=== PATIENT | female | born 1975 | race Two or more races ===

== ENCOUNTER 2020-09-09 11:59 | Inpatient (IN) | payer OTHER ==
[2020-09-09] VITALS (21 sets, daily range): BP systolic 88–157; BP diastolic 36–129
[~2020-09-09] VITALS: Ht 170.2 cm; Wt 95.0 kg
[2020-09-09] MEDS ORDERED: ETOMIDATE (2MG/ML) 20ML VIAL IV ONE ×2 (12:00→12:05)
[2020-09-09] MEDS ORDERED: MIDAZOLAM DRIP 50 mg/50mL 50 ML IV ONE (12:00)
[2020-09-09] MEDS ORDERED: SUCCINYLCHOLINE CHLORIDE 20 MG/ML 10ML VIAL IV ONE ×2 (12:01→12:05)
[2020-09-09] MEDS: MIDAZOLAM DRIP 50 mg/50mL 50 ML IV SCH ×2 (12:05→19:46)
[2020-09-09] MEDS ORDERED: ACETAMINOPHEN 650 MG RECT SUPP PR ONE (12:30)
[2020-09-09] MEDS ORDERED: PROPOFOL 100 ML IV ONE (12:39)
[2020-09-09] MEDS ORDERED: SODIUM CHLORIDE 0.9% 1,000 ML IV ONE ×2 (12:45)
[2020-09-09] MEDS: PROPOFOL 100 ML IV SCH ×3 (12:45→22:25)
[2020-09-09] MEDS ORDERED: cefTRIAXone 1GM/50ML D5W 50 ML IV ONE (12:45)
[2020-09-09 13:10] LABS: Basophils # (auto) 0.1 10 ^3/uL (0-0.2); Basophils % (auto) 1.3 % (0.0-2.0); Eosinophils # (auto) 0 10 ^3/uL (0-0.8); Eosinophils % (auto) 0.1 % (0.0-7.0); Hematocrit 35.3 % (36.0-46.0); Hemoglobin 11.5 g/dL (12.2-16.2); Lymphocytes # (auto) 2.4 10 ^3/uL (0.4-5.4); Lymphocytes % (auto) 44.3 % (10.0-50.0); Mean Corpuscular Hemoglobin 27.7 pg (28.0-32.0); Mean Corpuscular Hgb Conc. 32.6 g/dL (32.0-36.0); Mean Corpuscular Volume 85.1 fL (80.0-100.0); Monocytes # (auto) 0.2 10 ^3/uL (0-1.3); Monocytes % (auto) 4.6 % (0.0-12.0); Neutrophils # (auto) 2.7 10 ^3/uL (1.6-8.6); Neutrophils % (auto) 49.7 % (37.0-80.0); Nucleated Red Blood Cells % 0.4 %; Red Blood Cells 4.15 10^6/uL (4.0-5.20); White Blood Cell 5.4 10^3/uL (4.4-10.8)
[2020-09-09 13:18] LABS: Red Cell Distribution Width 23.3 % (11.8-14.3)
[2020-09-09 13:30] LABS: Albumin 3.8 g/dL (3.4-5.0); Calcium 7.9 mg/dL (8.5-10.1); Potassium 4.4 mmol/L (3.5-5.1)
[2020-09-09 13:32] LABS: Lactic Acid w/Reflex 5.7 mmol/L (0.4-2.0)
[2020-09-09 13:36] LABS: Bilirubin, Total 0.7 mg/dL (0.2-1.0); Total Protein 7.6 g/dL (6.4-8.2)
[2020-09-09 13:38] LABS: Urine Bacteria MOD /hpf (None Seen); Urine Blood Negative /uL (Negative); Urine Mucus MODERATE (None Seen); Urine Specific Gravity 1.008 (1.001-1.035); Urine WBC 16 /hpf (0 - 5)
[2020-09-09 13:56] LABS: Amphetamine Screen, Urine NEGATIVE (NEGATIVE); Barbiturate Scree,Urine NEGATIVE (NEGATIVE); Benzodiazephine Screen, Urine NEGATIVE (NEGATIVE); Cannabinoid Screen, Urine NEGATIVE (NEGATIVE); Cocaine Screen, Urine NEGATIVE (NEGATIVE); Opiate Scree,Urine NEGATIVE (NEGATIVE); Phencyclidine Screen, Urine NEGATIVE (NEGATIVE)
[2020-09-09] MEDS ORDERED: NOREPINEPHRINE 8 MG/250ML KIT 250 ML IV ONE (14:41)
[2020-09-09] MEDS ORDERED: CALCIUM GLUC 1,000mg/50ml-NS 50 ML IV ONE (17:00)
[2020-09-09] MEDS ORDERED: NITROGLYCERIN 0.4 MG SL TAB SL PRN (17:00)
[2020-09-09] MEDS ORDERED: ACETAMINOPHEN 325 MG RECT SUPP PR PRN (17:00)
[2020-09-09] MEDS ORDERED: MORPHINE SULF INJ 2 MG/ML SYRINGE 1ML IV PRN (17:00)
[2020-09-09] MEDS: NOREPINEPHRINE 8 MG/250ML KIT 250 ML IV SCH (17:09)
[2020-09-09] MEDS: SODIUM CHLORIDE 0.9% 1,000 ML IV SCH (17:24)
[2020-09-10] VITALS (101 sets, daily range): BP systolic 92–151; BP diastolic 36–84
[2020-09-10] MEDS: fentaNYL Drip 2500mCg/250mlNS 250 ML IV SCH (03:21)
[2020-09-10 05:44] LABS: Basophils # (auto) 0 10 ^3/uL (0-0.2); Basophils % (auto) 0.3 % (0.0-2.0); Eosinophils # (auto) 0 10 ^3/uL (0-0.8); Eosinophils % (auto) 0.1 % (0.0-7.0); Hematocrit 30.1 % (36.0-46.0); Hemoglobin 9.8 g/dL (12.2-16.2); Lymphocytes # (auto) 1.6 10 ^3/uL (0.4-5.4); Lymphocytes % (auto) 21.7 % (10.0-50.0); Mean Corpuscular Hemoglobin 27.9 pg (28.0-32.0); Mean Corpuscular Hgb Conc. 32.5 g/dL (32.0-36.0); Mean Corpuscular Volume 85.8 fL (80.0-100.0); Monocytes # (auto) 0.7 10 ^3/uL (0-1.3); Monocytes % (auto) 9.1 % (0.0-12.0); Neutrophils % (auto) 68.8 % (37.0-80.0); Nucleated Red Blood Cells % 0.2 %; Red Blood Cells 3.51 10^6/uL (4.0-5.20); White Blood Cell 7.2 10^3/uL (4.4-10.8)
[2020-09-10 05:51] LABS: Albumin 3.1 g/dL (3.4-5.0); Anion Gap 7 (5-15); Blood Urea Nitrogen 15 mg/dL (7-18); Calcium 7.4 mg/dL (8.5-10.1); Carbon Dioxide 23 mmol/L (21-32); Chloride 111 mmol/L (98-107); Glucose 111 mg/dL (74-106); Potassium 3.7 mmol/L (3.5-5.1); Sodium 141 mmol/L (136-145)
[2020-09-10 05:57] LABS: Alanine Aminotransferase 100 U/L (13-56); Alkaline Phosphatase 84 U/L (45-117); Aspartate Aminotransferase 81 U/L (15-37); BUN/Creatinine Ratio 28.3; Bilirubin, Total 1.1 mg/dL (0.2-1.0); Blood Alcohol < 3.0 mg/dL (0-5); GFR African American 159 mL/min; GFR Non-African American 131 mL/min; INR 1.14 (0.9-1.15); Total Protein 6.9 g/dL (6.4-8.2)
[2020-09-10 05:58] LABS: Red Cell Distribution Width 23.4 % (11.8-14.3)
[2020-09-10] MEDS: PROPOFOL 100 ML IV SCH ×3 (09:02→17:27)
[2020-09-10] MEDS: SODIUM CHLORIDE 0.9% 1,000 ML IV SCH ×3 (09:05→20:23)
[2020-09-10] MEDS: cefTRIAXone 1GM/50ML D5W 50 ML IV SCH (09:05)
[2020-09-10] MEDS: PANTOPRAZOLE 40 MG/10 ML VIAL INJ IV SCH (10:12)
[2020-09-10] MEDS: MIDAZOLAM DRIP 50 mg/50mL 50 ML IV SCH ×2 (10:13→17:27)
[2020-09-10] MEDS: ENOXAPARIN SOD 40 MG/0.4 ML SYRINGE SC SCH (10:13)
[2020-09-10] MEDS ORDERED: ONDA-144 PO (11:37)
[2020-09-10] MEDS ORDERED: VALA500T33 PO (11:37)
[2020-09-10] MEDS ORDERED: RIZA10TA50 OR (11:40)
[2020-09-10] MEDS ORDERED: META-167 PO (11:40)
[2020-09-10] MEDS ORDERED: MUPI2CRE17 EX (11:40)
[2020-09-10] MEDS ORDERED: HYDR-4607 PO (11:40)
[2020-09-10] MEDS ORDERED: SODIUM CHLORIDE 0.9% 1,000 ML IV SCH (11:45)
[2020-09-10] MEDS: FOLIC ACID 1 MG in D5W 5% 50 ML INJ SCH (12:12)
[2020-09-10] MEDS: NOREPINEPHRINE 8 MG/250ML KIT 250 ML IV SCH (14:37)
[2020-09-10] MEDS ORDERED: IOHEXOL 350 MG/ML 100ML IJ ONE (16:20)
[2020-09-11] VITALS (72 sets, daily range): BP systolic 108–157; BP diastolic 45–86
[2020-09-11] MEDS: fentaNYL Drip 2500mCg/250mlNS 250 ML IV SCH (03:00)
[2020-09-11] MEDS: PROPOFOL 100 ML IV SCH (05:59)
[2020-09-11] MEDS: SODIUM CHLORIDE 0.9% 1,000 ML IV SCH ×4 (05:59→23:10)
[2020-09-11 06:11] LABS: Basophils # (auto) 0 10 ^3/uL (0-0.2); Basophils % (auto) 0.2 % (0.0-2.0); Eosinophils # (auto) 0 10 ^3/uL (0-0.8); Eosinophils % (auto) 0.8 % (0.0-7.0); Hemoglobin 9.2 g/dL (12.2-16.2); Lymphocytes # (auto) 1.9 10 ^3/uL (0.4-5.4); Lymphocytes % (auto) 35.1 % (10.0-50.0); Mean Corpuscular Hemoglobin 28.5 pg (28.0-32.0); Mean Corpuscular Hgb Conc. 32.9 g/dL (32.0-36.0); Mean Corpuscular Volume 86.7 fL (80.0-100.0); Monocytes # (auto) 0.3 10 ^3/uL (0-1.3); Monocytes % (auto) 6.2 % (0.0-12.0); Neutrophils # (auto) 3.1 10 ^3/uL (1.6-8.6); Neutrophils % (auto) 57.7 % (37.0-80.0); Nucleated Red Blood Cells % 0.1 %; Red Blood Cells 3.23 10^6/uL (4.0-5.20); White Blood Cell 5.3 10^3/uL (4.4-10.8)
[2020-09-11 06:25] LABS: Chloride 111 mmol/L (98-107); Potassium 3.3 mmol/L (3.5-5.1); Sodium 140 mmol/L (136-145)
[2020-09-11 06:35] LABS: Albumin 2.9 g/dL (3.4-5.0); Anion Gap 6 (5-15); BUN/Creatinine Ratio 27.3; Blood Urea Nitrogen 9 mg/dL (7-18); Carbon Dioxide 23 mmol/L (21-32); GFR African American 275 mL/min; GFR Non-African American 227 mL/min; Glucose 80 mg/dL (74-106)
[2020-09-11 06:37] LABS: Red Cell Distribution Width 22.8 % (11.8-14.3)
[2020-09-11 06:49] LABS: Alanine Aminotransferase 79 U/L (13-56); Alkaline Phosphatase 75 U/L (45-117); Aspartate Aminotransferase 78 U/L (15-37); Bilirubin, Total 0.8 mg/dL (0.2-1.0); Creatine Kinase IFCC 1720 U/L (26-192)
[2020-09-11] MEDS: ENOXAPARIN SOD 40 MG/0.4 ML SYRINGE SC SCH (09:19)
[2020-09-11] MEDS: PANTOPRAZOLE 40 MG/10 ML VIAL INJ IV SCH (09:19)
[2020-09-11] MEDS: cefTRIAXone 1GM/50ML D5W 50 ML IV SCH (09:19)
[2020-09-11] MEDS: FOLIC ACID 1 MG in D5W 5% 50 ML INJ SCH (09:19)
[2020-09-11] MEDS: NOREPINEPHRINE 8 MG/250ML KIT 250 ML IV SCH (09:20)
[2020-09-11] MEDS: LINEZOLID 600MG/300ML 300 ML IV SCH ×2 (11:06→23:10)
[2020-09-11] MEDS: POTASSIUM CHL 20MEQ/100ML 100 ML IV SCH ×2 (15:11→16:58)
[2020-09-11] MEDS ORDERED: THIAMINE 100mg/ml INJ (200mg/2ml VIAL) IM ONE (15:30)
[2020-09-11] MEDS ORDERED: THIAMINE 100mg/ml INJ (200mg/2ml VIAL) IV ONE (15:45)
[2020-09-11 16:12] LABS: Magnesium 2.2 mg/dL (1.6-2.6); Phosphorus 2.7 mg/dL (2.5-4.90)
[2020-09-12] VITALS (10 sets, daily range): BP systolic 106–134; BP diastolic 49–79
[2020-09-12] MEDS: SODIUM CHLORIDE 0.9% 1,000 ML IV SCH ×3 (03:45→18:30)
[2020-09-12 04:43] LABS: Basophils # (auto) 0 10 ^3/uL (0-0.2); Basophils % (auto) 0.5 % (0.0-2.0); Eosinophils # (auto) 0.1 10 ^3/uL (0-0.8); Eosinophils % (auto) 1.1 % (0.0-7.0); Hematocrit 27.5 % (36.0-46.0); Hemoglobin 9.1 g/dL (12.2-16.2); Lymphocytes # (auto) 1.9 10 ^3/uL (0.4-5.4); Lymphocytes % (auto) 30.6 % (10.0-50.0); Mean Corpuscular Hemoglobin 28.1 pg (28.0-32.0); Mean Corpuscular Hgb Conc. 33.1 g/dL (32.0-36.0); Mean Corpuscular Volume 84.9 fL (80.0-100.0); Monocytes # (auto) 0.2 10 ^3/uL (0-1.3); Monocytes % (auto) 4.1 % (0.0-12.0); Neutrophils # (auto) 3.9 10 ^3/uL (1.6-8.6); Neutrophils % (auto) 63.7 % (37.0-80.0); Nucleated Red Blood Cells % 0.1 %; Red Blood Cells 3.23 10^6/uL (4.0-5.20); White Blood Cell 6.1 10^3/uL (4.4-10.8)
[2020-09-12 04:44] LABS: Red Cell Distribution Width 22.3 % (11.8-14.3)
[2020-09-12 05:01] LABS: Albumin 2.9 g/dL (3.4-5.0); Anion Gap 7 (5-15); Blood Urea Nitrogen 3 mg/dL (7-18); Calcium 7.6 mg/dL (8.5-10.1); Carbon Dioxide 24 mmol/L (21-32); Chloride 109 mmol/L (98-107); Glucose 81 mg/dL (74-106); Potassium 3.5 mmol/L (3.5-5.1); Sodium 140 mmol/L (136-145)
[2020-09-12 05:03] LABS: Alanine Aminotransferase 70 U/L (13-56); BUN/Creatinine Ratio 7.9; Blood Alcohol < 3.0 mg/dL (0-5); GFR African American 233 mL/min; GFR Non-African American 193 mL/min
[2020-09-12 05:17] LABS: Alkaline Phosphatase 74 U/L (45-117); Aspartate Aminotransferase 67 U/L (15-37); Bilirubin, Total 1.2 mg/dL (0.2-1.0); Creatine Kinase IFCC 1161 U/L (26-192); Total Protein 6.3 g/dL (6.4-8.2)
[2020-09-12] MEDS: cefTRIAXone 1GM/50ML D5W 50 ML IV SCH (08:01)
[2020-09-12] MEDS: THIAMINE 100mg/ml INJ (200mg/2ml VIAL) IV SCH (09:00)
[2020-09-12] MEDS: PANTOPRAZOLE 40 MG/10 ML VIAL INJ IV SCH (09:00)
[2020-09-12] MEDS: FOLIC ACID 1 MG in D5W 5% 50 ML INJ SCH (09:01)
[2020-09-12] MEDS ORDERED: FOLIC ACID 1 MG TAB PO SCH (10:42)
[2020-09-12] MEDS ORDERED: levoFLOXacin 500MG 100 ML IV ONE (10:45)
[2020-09-12] MEDS ORDERED: FOLIC ACID 1 MG TAB PO ONE (10:45)
[2020-09-12] MEDS: ENOXAPARIN SOD 40 MG/0.4 ML SYRINGE SC SCH (11:37)
[2020-09-12] MEDS ORDERED: HYDROcodone-ACET 5/325MG TAB ONE (12:43)
[2020-09-12] MEDS: HYDROcodone-ACET 5/325MG TAB PO PRN (18:44)
[2020-09-13] MEDS: HYDROcodone-ACET 5/325MG TAB PO PRN ×4 (00:11→21:27)
[2020-09-13] MEDS: SODIUM CHLORIDE 0.9% 1,000 ML IV SCH ×4 (04:04→18:05)
[2020-09-13 05:26] VITALS: BP 144/78
[2020-09-13 06:25] LABS: Basophils # (auto) 0 10 ^3/uL (0-0.2); Basophils % (auto) 0.6 % (0.0-2.0); Eosinophils # (auto) 0.1 10 ^3/uL (0-0.8); Eosinophils % (auto) 1.1 % (0.0-7.0); Hematocrit 27.7 % (36.0-46.0); Hemoglobin 9.1 g/dL (12.2-16.2); Lymphocytes # (auto) 1.7 10 ^3/uL (0.4-5.4); Lymphocytes % (auto) 31.6 % (10.0-50.0); Mean Corpuscular Hemoglobin 28.3 pg (28.0-32.0); Mean Corpuscular Hgb Conc. 32.9 g/dL (32.0-36.0); Monocytes # (auto) 0.4 10 ^3/uL (0-1.3); Neutrophils # (auto) 3.3 10 ^3/uL (1.6-8.6); Neutrophils % (auto) 59.7 % (37.0-80.0); Nucleated Red Blood Cells % 0.1 %; Red Blood Cells 3.22 10^6/uL (4.0-5.20); White Blood Cell 5.4 10^3/uL (4.4-10.8)
[2020-09-13 06:42] LABS: Red Cell Distribution Width 21.7 % (11.8-14.3)
[2020-09-13 06:44] LABS: Potassium 3.2 mmol/L (3.5-5.1)
[2020-09-13 06:47] LABS: BUN/Creatinine Ratio 15.8
[2020-09-13] MEDS ORDERED: MORPHINE SULF INJ 2 MG/ML SYRINGE 1ML IV ONE (07:00)
[2020-09-13 09:00] VITALS: BP 159/85
[2020-09-13] MEDS: THIAMINE 100mg/ml INJ (200mg/2ml VIAL) IV SCH (09:02)
[2020-09-13] MEDS: levoFLOXacin 500MG 100 ML IV SCH (09:03)
[2020-09-13] MEDS: PANTOPRAZOLE 40 MG/10 ML VIAL INJ IV SCH (09:03)
[2020-09-13] MEDS: ENOXAPARIN SOD 40 MG/0.4 ML SYRINGE SC SCH (09:03)
[2020-09-13] MEDS ORDERED: FOLIC ACID 1 MG TAB PO SCH (10:00)
[2020-09-13] MEDS: FOLIC ACID 1 MG in D5W 5% 50 ML INJ SCH (10:00)
[2020-09-13] MEDS ORDERED: POTASSIUM CHL 20 Meq TABLET PO ONE (12:00)
[2020-09-13 13:00] VITALS: BP 140/98
[2020-09-13] MEDS ORDERED: ONDANSETRON HCL 4 MG/2 ML VIAL IV PRN (15:15)
[2020-09-13 17:00] VITALS: BP 118/69
[2020-09-13] MEDS ORDERED: TEMAZEPAM 15 MG CAP PO ONE (22:00)
[2020-09-13 22:31] VITALS: BP 136/76
[2020-09-14] MEDS: SODIUM CHLORIDE 0.9% 1,000 ML IV SCH ×2 (02:25→09:11)
[2020-09-14] MEDS: HYDROcodone-ACET 5/325MG TAB PO PRN ×2 (05:16→11:20)
[2020-09-14 05:25] VITALS: BP 149/83
[2020-09-14 05:42] LABS: Potassium 3.7 mmol/L (3.5-5.1)
[2020-09-14 09:00] VITALS: BP 143/80
[2020-09-14] MEDS: PANTOPRAZOLE 40 MG/10 ML VIAL INJ IV SCH (10:05)
[2020-09-14] MEDS: levoFLOXacin 500MG 100 ML IV SCH (10:05)
[2020-09-14] MEDS: THIAMINE 100mg/ml INJ (200mg/2ml VIAL) IV SCH (10:05)
[2020-09-14] MEDS: ENOXAPARIN SOD 40 MG/0.4 ML SYRINGE SC SCH (10:05)
[2020-09-14] MEDS: FOLIC ACID 1 MG in D5W 5% 50 ML INJ SCH (10:54)
[2020-09-14 11:18] VITALS: BP 143/80
== END 2020-09-14 12:30 | disposition home or self-care (01) | DRG 871 ==
LOC: ER 11:59 → EDBD 11:59 → ICU CENTRL 16:48 → DOU IN ICU 20:24 → TELE-CENTR 09-12 18:00
PROVIDERS: ADMIT Family Medicine; ATTEND Family Medicine
PROC: 5A1945Z Respiratory Ventilation, 24-96 Consecutive Hours (ICD-10-PCS; principal; 2020-09-09)
PROC: 0BH17EZ Insertion of Endotracheal Airway into Trachea, Via Natural or Artificial Opening (ICD-10-PCS; 2020-09-09)
PROC: 02HV33Z Insertion of Infusion Device into Superior Vena Cava, Percutaneous Approach (ICD-10-PCS; 2020-09-09)
DX: A41.9 Sepsis, unspecified organism (principal); R65.21 Severe sepsis with septic shock; G92 Toxic encephalopathy; J96.00 Acute respiratory failure, unspecified whether with hypoxia or hypercapnia; T67.01XA Heatstroke and sunstroke, initial encounter; N39.0 Urinary tract infection, site not specified; M62.82 Rhabdomyolysis; N17.9 Acute kidney failure, unspecified; E83.51 Hypocalcemia; F10.129 Alcohol abuse with intoxication, unspecified; D64.9 Anemia, unspecified; E66.9 Obesity, unspecified; Z68.35 Body mass index [BMI] 35.0-35.9, adult; Z20.822 Contact with and (suspected) exposure to COVID-19; Z79.899 Other long term (current) drug therapy; B95.2 Enterococcus as the cause of diseases classified elsewhere; E87.6 Hypokalemia; R74.8 Abnormal levels of other serum enzymes; X30.XXXA Exposure to excessive natural heat, initial encounter; Y93.89 Activity, other specified; Y92.89 Other specified places as the place of occurrence of the external cause; Y99.8 Other external cause status; Y90.9 Presence of alcohol in blood, level not specified
CPT/HCPCS: 31500; 36415; 36556; 36600; 70450; 71045; 71275; 80048; 80053; 80307; 80320; 81001; 82306; 82550; 82728; 82805; 83605; 83735; 83970; 84100; 84443; 84484; 84702; 85025; 85379; 85610; 86141; 87040; 87070; 87081; 87086; 87088; 87186; 87205; 87426; 93005; 93306; 93970; 93971; 94003; 94640; 96365; 96367; 96375; 99291; C9113; G0378; J0330; J0696; J1956; J2250; J2405; J2704; J3480; J7060